=== PATIENT | female | born 1970 | race African-American/Black ===

== ENCOUNTER 2021-10-16 11:56 | Day surgery (SDC) | payer BC ==
[2021-10-14 15:12] VITALS: BMI 32.4
[2021-10-16 13:33] VITALS: BP 110/76; PULSE 80; TEMP 98
== END 2021-10-16 14:10 | disposition home or self-care (01) ==
LOC: FASU-ENDO 11:56
PROVIDERS: ATTEND Internal Medicine Gastroenterology
PROC: 0DJD8ZZ Inspection of Lower Intestinal Tract, Via Natural or Artificial Opening Endoscopic (ICD-10-PCS; principal; 2021-10-16 13:04)
DX: Z12.11 Encounter for screening for malignant neoplasm of colon (principal); K64.1 Second degree hemorrhoids